=== PATIENT | female | born 1985 | race Caucasian/White ===

== ENCOUNTER 2017-01-04 12:26 | Emergency (ER) | payer BC, OTHER ==
[2017-01-04 12:42] VITALS: BP 137/81; PULSE 86; RESP 16; TEMP 98
[2017-01-04] MEDS ORDERED: DIPH,PERTUS(ACELL)TETVAC-LF 0.5 ML VIAL IM ONE (12:44)
--- NOTE | 2017-01-04 12:51 | ED ---
Animal Bite HPI - General Chief Complaint: Animal Bite Stated Complaint: dog bite, [facility] Time Seen by Provider: 01/04/17 12:36 Source: patient, RN notes reviewed Mode of arrival: ambulatory Limitations: no limitations - History of Present Illness Initial Comments: 31-year-old female presents to the emergency Department chief complaint of dog bite. Patient stated she was at work in a document from that her in the leg. Patient states she lifted out of 10 and these vaccinations. Patient states she does not wish steps and tenderness. Patient states just feels sore and painful. Patient denies any gross bleeding from the area. Patient denies any fever chills any redness surrounding the area. Patient denies any other injuries from the incident.Patient denies any recent fever, chills, shortness of breath, chest pain, back pain, abdominal pain, nausea vomiting, numbness or tingling, dysuria or hematuria, constipation or diarrhea, headaches or visual changes, or any other current symptoms. - Related Data Home Medications Medication Instructions Recorded Confirmed Cholecalciferol [Vitamin D3] 2,000 unit PO DAILY 10/12/14 01/04/17 Cetirizine HCl [Zyrtec] 10 mg PO DAILY 01/04/17 01/04/17 Levothyroxine Sodium [Synthroid] 112 mcg PO DAILY 01/04/17 01/04/17 Liothyronine Sodium [Cytomel] 10 mcg PO BID 01/04/17 01/04/17 Spironolactone 100 mg PO HS 01/04/17 01/04/17 Allergies Allergy/AdvReac Type Severity Reaction Status Date / Time No Known Allergies Allergy Verified 01/04/17 12:47 Review of Systems ROS Statement: Those systems with pertinent positive or pertinent negative responses have been documented in the HPI. ROS Other: All systems not noted in ROS Statement are negative. Past Medical History Past Medical History: Cancer, Thyroid Disorder Additional Past Medical History / Comment(s): THYROID CANCER History of Any Multi-Drug Resistant Organisms: None Reported Past Surgical History: Section Additional Past Surgical History / Comment(s): THROIDECTOMY 2010. CYST REMOVED FROM BRAIN. INUTERINE TREATMENT WHEN WITH TWINS (DONE IN [place]). C- SECTION X 3. Past Anesthesia/Blood Transfusion Reactions: No Reported Reaction Past Psychological History: No Psychological Hx Reported Smoking Status: Never smoker Past Alcohol Use History: Rare Past Drug Use History: None Reported General Exam Limitations: no limitations General appearance: alert, in no apparent distress Neck exam: Present: normal inspection. Absent: tenderness, meningismus, lymphadenopathy Respiratory exam: Present: normal lung sounds bilaterally. Absent: respiratory distress, wheezes, rales, rhonchi, stridor Cardiovascular Exam: Present: regular rate, normal rhythm, normal heart sounds. Absent: systolic murmur, diastolic murmur, rubs, gallop, clicks Extremities exam: Present: full ROM, normal capillary refill. Absent: normal inspection (Patient has a small abrasion to the right upper thigh), tenderness, pedal edema, joint swelling, calf tenderness Back exam: Present: normal inspection Neurological exam: Present: alert, oriented X3, CN II-XII intact Course Vital Signs 01/04/17 12:37 Temperature 98 F Pulse Rate 86 Respiratory 16 Rate Blood Pressure 137/81 O2 Sat by Pulse 100 Oximetry Medical Decision Making - Medical Decision Making 31-year-old female presents for diabetic. Centimeters abrasion to the right upper thigh. X-rays reviewed that showed no acute processes. Her tetanus was updated. 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 Patient stated that she understood that was a patient Augmentin. Discussed comparison follow-up. Patient states she understood all questions have been answered. She will be discharged. - Radiology Data Radiology results: report reviewed, image reviewed Disposition Clinical Impression: Dog bite of right thigh Disposition: HOME SELF-CARE Condition: Stable Instructions: Animal Bite (ED) Additional Instructions: Please use medication as discussed. Please follow up with family doctor if symptoms have not improved over the next two days. Please return to the emergency room if your symptoms increase or worsen or for any other concerns. Referrals: Adeola Muniz MD [Primary Care Provider] - 1-2 days Time of Disposition: 13:17
--- NOTE | 2017-01-04 13:02 | XR ---
EXAMINATION TYPE: XR femur RT DATE OF EXAM: 01/04/2017 12:56 PM CLINICAL HISTORY: pain TECHNIQUE: Two views of the right femur are obtained. COMPARISON: None. FINDINGS: There is no acute fracture or dislocation seen of the femur. The hip and knee joints appear within normal limits. The overlying soft tissue appears unremarkable. IMPRESSION: There is no acute fracture or dislocation seen of the femur. ICD 10 NO FRACTURE, INITIAL EVALUATION
[2017-01-04] MEDS ORDERED: AMOXIC-POT CLAV 875MG STARTER 2 EACH TABLET PO STA (13:17)
== END 2017-01-04 13:39 | disposition home or self-care (01) ==
LOC: EC 12:26
DX: S71.151A Open bite, right thigh, initial encounter (principal); E07.9 Disorder of thyroid, unspecified; W54.0XXA Bitten by dog, initial encounter; Y99.0 Civilian activity done for income or pay; Z23 Encounter for immunization; Z79.899 Other long term (current) drug therapy; Z85.850 Personal history of malignant neoplasm of thyroid
CPT/HCPCS: 90471; 90715; 99283

== ENCOUNTER 2017-11-30 11:13 | Emergency (ER) | payer OTHER ==
[2017-11-30] MEDS ORDERED: ACETAMINOPHEN TAB 500 MG TAB PO STA (12:06)
--- NOTE | 2017-11-30 12:08 | ED ---
URI HPI - General Chief Complaint: Upper Respiratory Infection Stated Complaint: cough Time Seen by Provider: 11/30/17 11:36 Source: patient Mode of arrival: ambulatory Limitations: no limitations - History of Present Illness Initial Comments: This is a 32-year-old female who presents emergency department for 1 week's worth of cough, congestion, and earache. The patient is also been complaining of fevers and chills at home. She states that the symptoms been going on for a week and have gradually been improving however she's had persistent symptoms or she decided come emergency department. She denies any chest pain or shortness of breath. No abdominal pain. No nausea, vomiting, or diarrhea. No dysuria or hematuria. No other acute complaints. - Related Data Home Medications Medication Instructions Recorded Confirmed Levothyroxine Sodium [Synthroid] 112 mcg PO DAILY 01/04/17 11/30/17 Liothyronine Sodium [Cytomel] 10 mcg PO BID 01/04/17 11/30/17 Spironolactone 100 mg PO HS 01/04/17 11/30/17 Etonogestrel/Ethinyl Estradiol 1 ring VG Q28D 11/30/17 11/30/17 [Nuvaring Vaginal Ring] Previous Rx's Medication Instructions Recorded Amoxicillin/Potassium Clav 1 tab PO Q12HR #14 tab 11/30/17 [Augmentin 875-125 Tablet] Allergies Allergy/AdvReac Type Severity Reaction Status Date / Time No Known Allergies Allergy Verified 11/30/17 11:32 Review of Systems ROS Statement: Those systems with pertinent positive or pertinent negative responses have been documented in the HPI. ROS Other: All systems not noted in ROS Statement are negative. Past Medical History Past Medical History: Cancer, Thyroid Disorder Additional Past Medical History / Comment(s): THYROID CANCER History of Any Multi-Drug Resistant Organisms: None Reported Past Surgical History: Section, Hysterectomy Additional Past Surgical History / Comment(s): THROIDECTOMY 2010. CYST REMOVED FROM BRAIN. INUTERINE TREATMENT WHEN WITH TWINS (DONE IN [place]). C- SECTION X 3. Past Anesthesia/Blood Transfusion Reactions: No Reported Reaction Past Psychological History: No Psychological Hx Reported Smoking Status: Never smoker Past Alcohol Use History: Rare Past Drug Use History: None Reported General Exam - General Exam Comments Initial Comments: Constitutional: Awake alert Appears comfortable Head: Normocephalic atraumatic Eyes: no conjunctival injection No scleral icterus EOMI ENT oropharynx is mildly erythematous without exudate, TMs clear bilaterally, mild rhinorrhea Neck: No JVD Supple, no lymphadenopathy Heart: Regular rate rhythm normal S1-S2 no murmurs Lungs: Clear to auscultation bilaterally No wheezing No rales Abdomen: Soft nondistended nontender Extremities: Non edematous DP pulses intact Radial pulses intact Neuro: A&Ox3 No focal neurologic deficits Psych: Appropriate mood and affect Limitations: no limitations Course Vital Signs 11/30/17 11/30/17 11/30/17 11:29 12:42 13:40 Temperature 100.3 F H 98.0 F Pulse Rate 110 H 95 Respiratory 20 16 20 Rate Blood Pressure 122/77 140/80 O2 Sat by Pulse 97 98 Oximetry Medical Decision Making - Medical Decision Making Is a 32-year-old female presents emergency room for cough and congestion and fever. The patient was febrile on arrival however did not have any evidence for pneumonia. Influenza was negative. Patient due to her symptoms being for the last week will be started on Augmentin for probable sinusitis. Told to follow-up with her primary doctor. Can return emergency Department if she has worsening or changing symptoms or questions were answered. - Lab Data Lab Results 11/30/17 Range/Units 12:13 Influenza Type A RNA Not Detected (Not Detectd) Influenza Type B (PCR) Not Detected (Not Detectd) Disposition Clinical Impression: URI (upper respiratory infection) Disposition: HOME SELF-CARE Condition: Stable Instructions: Upper Respiratory Infection (ED) Prescriptions: Amoxicillin/Potassium Clav [Augmentin 875-125 Tablet] 1 tab PO Q12HR #14 tab Referrals: Adeola Muniz MD [Primary Care Provider] - 1-2 days
--- NOTE | 2017-11-30 12:52 | XR ---
EXAMINATION TYPE: XR chest 2V DATE OF EXAM: 11/30/2017 COMPARISON: 03/28/2010 HISTORY: Cough TECHNIQUE: Frontal and lateral views of the chest are obtained. FINDINGS: Heart and mediastinum are normal. Lungs are clear. Diaphragm is normal. Bony thorax appear s normal. IMPRESSION: Normal chest. No change.
[2017-11-30 13:41] VITALS: BP 140/80; PULSE 95; RESP 20; TEMP 98
== END 2017-11-30 13:40 | disposition home or self-care (01) ==
LOC: EC 11:13
DX: J06.9 Acute upper respiratory infection, unspecified (principal); E07.9 Disorder of thyroid, unspecified; Z85.850 Personal history of malignant neoplasm of thyroid; Z79.899 Other long term (current) drug therapy; Z79.3 Long term (current) use of hormonal contraceptives
CPT/HCPCS: 71020; 87502; 99283

== ENCOUNTER 2024-10-08 16:43 | Emergency (ER) | payer SELFPAY ==
--- NOTE | 2024-10-08 17:21 | ED ---
Abdominal Pain HPI - General Chief Complaint: Abdominal Pain Stated Complaint: Abd/Back Pain Time Seen by Provider: 10/08/24 17:00 Source: patient, RN notes reviewed Mode of arrival: ambulatory Limitations: no limitations - History of Present Illness Initial Comments: This is a 39-year-old female who presents to the emergency department for abdominal pain. Patient states that she started to develop pain in the right lower quadrant/right pelvic region starting around 9 AM. Pain has since persisted and started to wrap around into her back. Reports associated nausea and vomiting. She has a history of PCOS and endometriosis. She had a partial hysterectomy but still has her ovaries. States that she has a history of large ovarian cysts and is concerned that she could have another one. MD Complaint: abdominal pain - Related Data Home Medications Medication Instructions Recorded Confirmed Levothyroxine Sodium [Synthroid] 112 mcg PO DAILY 01/04/17 11/30/17 Liothyronine Sodium [Cytomel] 10 mcg PO BID 01/04/17 11/30/17 Spironolactone 100 mg PO HS 01/04/17 11/30/17 Etonogestrel/Ethinyl Estradiol 1 ring VG Q28D 11/30/17 11/30/17 [Nuvaring Vaginal Ring] Previous Rx's Medication Instructions Recorded Amoxicillin/Potassium Clav 1 tab PO Q12HR #14 tab 11/30/17 [Augmentin 875-125 Tablet] Ketorolac [Toradol] 10 mg PO Q6HR PRN #15 tab 10/08/24 Ondansetron Odt [Zofran Odt] 4 mg PO Q8HR PRN #20 tab 10/08/24 Allergies Allergy/AdvReac Type Severity Reaction Status Date / Time No Known Allergies Allergy Verified 10/08/24 16:53 Review of Systems ROS Statement: Those systems with pertinent positive or pertinent negative responses have been documented in the HPI. ROS Other: All systems not noted in ROS Statement are negative. Past Medical History Past Medical History: Cancer, Thyroid Disorder Additional Past Medical History / Comment(s): THYROID CANCER History of Any Multi-Drug Resistant Organisms: None Reported Past Surgical History: Section, Hysterectomy Additional Past Surgical History / Comment(s): THROIDECTOMY 2010. CYST REMOVED FROM BRAIN. INUTERINE TREATMENT WHEN WITH TWINS (DONE IN [place]). C- SECTION X 3. Past Anesthesia/Blood Transfusion Reactions: No Reported Reaction Past Psychological History: No Psychological Hx Reported Past Alcohol Use History: Rare Past Drug Use History: None Reported General Exam Limitations: no limitations General appearance: alert, in distress Head exam: Present: atraumatic, normocephalic, normal inspection Respiratory exam: Present: normal lung sounds bilaterally. Absent: respiratory distress, wheezes, rales, rhonchi, stridor Cardiovascular Exam: Present: regular rate, normal rhythm, normal heart sounds. Absent: systolic murmur, diastolic murmur, rubs, gallop, clicks GI/Abdominal exam: Present: soft, tenderness (RLQ), normal bowel sounds. Abs ent: distended Expanded GI/Abdominal exam: Absent: psoas sign, obturator sign, heel tap sign, Tate's sign, tenderness at [place]Bur[place]'s Point Neurological exam: Present: alert, oriented X3, CN II-XII intact Psychiatric exam: Present: normal affect, normal mood Skin exam: Present: warm, dry, intact, normal color. Absent: rash Course Vital Signs 10/08/24 10/08/24 10/08/24 16:50 19:01 20:52 Temperature 98.1 F 97.8 F 98.1 F Pulse Rate 97 85 80 Respiratory 18 16 18 Rate Blood Pressure 116/86 104/66 103/70 O2 Sat by Pulse 100 98 94 L Oximetry Medical Decision Making - Medical Decision Making This is a 39 year old female who presents to the emergency department for abdomi nal pain. Was pt. sent in by a medical professional or institution? @ -No Did you speak to anyone other than the patient for history? @ -No Did you review nursing and triage notes? @ -Yes, and I agree, it is accurate with regards to the patient's symptoms. Were old charts reviewed? @ -No Differential Diagnosis? @ -Differential Abdominal Pain Women: Appendicitis, Cholecystitis, diverticulosis, ischemic bowel, pancreatitis, hepatitis, UTI, gastroenteritis, AAA, incarcerated hernia, bowel obstruction, constipation, inflammatory bowel, hepatitis, peptic ulcer disease, splenic infarction, perforated viscus, vulvitis, ovarian torsion, PID, kidney stone, placenta abruption, this is not meant to be an all-inclusive list EKG interpreted by me (3pts min.)? @ -Not obtained X-rays interpreted by me (1pt min.)? @ -Not obtained CT interpreted by me (1pt min.)? @ -CT scan of the abdomen and pelvis obtained. My interpretation identifies no evidence of bowel wall thickening or free air. U/S interpreted by me (1pt. min.)? @ -Transvaginal ultrasound obtained. My interpretation identifies a right- sided ovarian cyst. What testing was considered but not performed? (CT, X-rays, U/S, labs)? Why? @ -None What meds were considered but not given? Why? @ -None Did you discuss the management of the patient with other professionals? @ -Yes, Dr. Aldrich, UPHOLSTERY DEPARTMENT SUPERVISOR, who advised that this is not considered a torsion at this point since there is still blood flow and we can start with analgesics. Did you reconcile home meds? @ -No Was smoking cessation discussed for >3mins.? @ -No Was critical care preformed (if so, how long)? @ -No Were there social determinants of health that impacted care today? How? (Homelessness, low income, unemployed, alcoholism, drug addiction, transportation, low edu. Level, literacy, decrease access to med. care, senior care, rehab)? @ -No Was there de-escalation of care discussed even if they declined? (Discuss DNR or withdrawal of care, Hospice)? @ -No What co-morbidities impacted this encounter? (DM, HTN, Smoking, COPD, CAD, Cancer, CVA, Hep., AIDS, mental health diagnosis, sleep apnea, morbid obesity)? @ -Endometriosis Was patient admitted / discharged? @ -Discharged. When the patient presented to the emergency department she was first seen and evaluated in the waiting room. Transvaginal ultrasound was obtained demonstrating a complex right adnexal lesion possibly representing an ovary with 2 cysts. However, the overall size fixation is at increased risk for torsion. There is also diminished arterial flow to the ovary. Given these findings and patient's level distress, case was discussed with on-call UPHOLSTERY DEPARTMENT SUPERVISOR, Dr. Aldrich. She advised that this is not considered a torsion at this point and we can try treating the patient with analgesics to begin with. Lab work obtained demonstrating leukocytosis. Lactic acid negative. Given the leukocytosis, CT scan of the abdomen and pelvis was obtained as well to evaluate for any other pathologies. CT demonstrated her ovaries being situated next to each other as well as an abnormal soft tissue mass in the abdominal wall surgical bed concerning for endometriosis with abdominal wall implant. Her appendix was not definitively visualized. Findings reviewed with the patient. While she does have leukocytosis, she has no fevers, rebound tenderness, or tenderness over McBurney's point specifically. Given that symptoms are well- controlled, she was able to be discharged home. However, we did discuss very strict return parameters. Appendicitis cannot definitively be ruled out and worsening pain necessitates the need for her to return. She is also at increased risk for torsion, which is another indication to return with increasing pain. Patient expresses understanding. Toradol and Zofran prescribed for further symptomatic management. Advised follow-up with UPHOLSTERY DEPARTMENT SUPERVISOR as well. Patient discharged home in stable condition. Case discussed with ED attending Dr. Sun. Return precautions reviewed in depth, the patient is instructed to return to the emergency department with any new, worsening, or concerning symptoms. Patient verbalized understanding. Undiagnosed new problem with uncertain prognosis? @ -None Drug Therapy requiring intensive monitoring for toxicity (Heparin, Nitro, Insulin, Cardizem)? @ -None Were any procedures done? @ -None Diagnosis/symptom? @ -Right ovarian cyst, endometriosis of anterior abdominal wall Acute, or Chronic, or Acute on Chronic? @ -Acute Uncomplicated (without systemic symptoms) or Complicated (systemic symptoms)? @ -Uncomplicated Side effects of treatment? @ -None Exacerbation, Progression, or Severe Exacerbation] @ -Not applicable Poses a threat to life or bodily function? @ -This will depend on how she progresses - Lab Data Result diagrams: 10/08/24 18:41 10/08/24 18:41 Lab Results 10/08/24 10/08/24 10/08/24 Range/Units 18:41 18:41 18:41 WBC 17.4 H (3.8-10.6) k/uL RBC 4.84 (3.80-5.40) m/uL Hgb 14.5 (11.4-16.0) gm/dL Hct 43.5 (34.0-46.0) % MCV 89.8 (80.0-100.0) fL MCH 30.0 (25.0-35.0) pg MCHC 33.5 (31.0-37.0) g/dL RDW 12.5 (11.5-15.5) % Plt Count 367 (150-450) k/uL MPV 7.4 Neutrophils % 90 % Lymphocytes % 6 % Monocytes % 3 % Eosinophils % 1 % Basophils % 0 % Neutrophils # 15.7 H (1.3-7.7) k/uL Lymphocytes # 1.1 (1.0-4.8) k/uL Monocytes # 0.4 (0-1.0) k/uL Eosinophils # 0.1 (0-0.7) k/uL Basophils # 0.1 (0-0.2) k/uL Sodium 135 L (137-145) mmol/L Potassium 4.0 (3.5-5.1) mmol/L Chloride 105 (98-107) mmol/L Carbon Dioxide 23 (22-30) mmol/L Anion Gap 7 mmol/L BUN 10 (7-17) mg/dL Creatinine 0.67 (0.52-1.04) mg/dL Est GFR (CKD-EPI)AfAm >90 (>60 ml/min/1.73 sqM) Est GFR (CKD-EPI)NonAf >90 (>60 ml/min/1.73 sqM) Glucose 128 H (74-99) mg/dL Plasma Lactic Acid [place] 1.2 (0.7-2.0) mmol/L Calcium 9.4 (8.4-10.2) mg/dL Total Bilirubin 0.5 (0.2-1.3) mg/dL AST 26 (14-36) U/L ALT 30 (4-34) U/L Alkaline Phosphatase 82 (38-126) U/L Total Protein 7.6 (6.3-8.2) g/dL Albumin 4.4 (3.5-5.0) g/dL Amylase 50 (30-110) U/L Lipase 59 (23-300) U/L Urine Color Urine Appearance (Clear) Urine pH (5.0-8.0) Ur Specific [place] (1.001-1.035) Urine Protein (Negative) Urine Glucose (UA) (Negative) Urine Ketones (Negative) Urine Blood (Negative) Urine Nitrite (Negative) Urine Bilirubin (Negative) Urine Urobilinogen (<2.0) mg/dL Ur Leukocyte Esterase (Negative) 10/08/24 Range/Units 20:28 WBC (3.8-10.6) k/uL RBC (3.80-5.40) m/uL Hgb (11.4-16.0) gm/dL Hct (34.0-46.0) % MCV (80.0-100.0) fL MCH (25.0-35.0) pg MCHC (31.0-37.0) g/dL RDW (11.5-15.5) % Plt Count (150-450) k/uL MPV Neutrophils % % Lymphocytes % % Monocytes % % Eosinophils % % Basophils % % Neutrophils # (1.3-7.7) k/uL Lymphocytes # (1.0-4.8) k/uL Monocytes # (0-1.0) k/uL Eosinophils # (0-0.7) k/uL Basophils # (0-0.2) k/uL Sodium (137-145) mmol/L Potassium (3.5-5.1) mmol/L Chloride (98-107) mmol/L Carbon Dioxide (22-30) mmol/L Anion Gap mmol/L BUN (7-17) mg/dL Creatinine (0.52-1.04) mg/dL Est GFR (CKD-EPI)AfAm (>60 ml/min/1.73 sqM) Est GFR (CKD-EPI)NonAf (>60 ml/min/1.73 sqM) Glucose (74-99) mg/dL Plasma Lactic Acid [place] (0.7-2.0) mmol/L Calcium (8.4-10.2) mg/dL Total Bilirubin (0.2-1.3) mg/dL AST (14-36) U/L ALT (4-34) U/L Alkaline Phosphatase (38-126) U/L Total Protein (6.3-8.2) g/dL Albumin (3.5-5.0) g/dL Amylase (30-110) U/L Lipase (23-300) U/L Urine Color Colorless Urine Appearance Clear (Clear) Urine pH 6.5 (5.0-8.0) Ur Specific [place] 1.022 (1.001-1.035) Urine Protein Negative (Negative) Urine Glucose (UA) Negative (Negative) Urine Ketones 1+ H (Negative) Urine Blood Negative (Negative) Urine Nitrite Negative (Negative) Urine Bilirubin Negative (Negative) Urine Urobilinogen <2.0 (<2.0) mg/dL Ur Leukocyte Esterase Negative (Negative) - Radiology Data Radiology results: report reviewed, image reviewed Disposition Clinical Impression: Right ovarian cyst, Endometriosis of anterior abdominal wall Disposition: HOME SELF-CARE Instructions (If sedation given, give patient instructions): Endometriosis (ED), Ovarian Cyst (ED) Additional Instructions: Return to the emergency department with any new, worsening, or concerning symptoms. Take the Toradol with Tylenol as needed for pain relief. If you choose to take the Toradol, do not take any other anti-inflammatories such as ibuprofen, take one or the other. Take the Zofran up to every 8 hours as needed for nausea and vomiting. Follow-up with UPHOLSTERY DEPARTMENT SUPERVISOR, this can be a local provider or you can see [facility] again. Follow up with your primary care provider in 1-2 days. Prescriptions: Ketorolac [Toradol] 10 mg PO Q6HR PRN #15 tab PRN Reason: Pain Ondansetron Odt [Zofran Odt] 4 mg PO Q8HR PRN #20 tab PRN Reason: Nausea And Vomiting Is patient prescribed a controlled substance at d/c from ED?: No Referrals: Sree Cordova DO [Primary Care Provider] - 1-2 days Leesa Aldrich DO [Doctor of Osteopathic Medicine] - 1-2 days Time of Disposition: 21:10
--- NOTE | 2024-10-08 18:07 | US ---
EXAMINATION TYPE: US transvaginal DATE OF EXAM: 10/08/2024 COMPARISON: 06/04/2016 CLINICAL INDICATION: Female, 39 years old with history of Right sided pelvic pain; right pelvic pain, vomiting. partial hysterectomy 2017. 3 c-sections. tubal ligation TECHNIQUE: Transvaginal (TV). Transvaginal grayscale sonographic images of the pelvis were acquired. Doppler imaging: Color Doppler Images were obtained. Spectral doppler images were obtained. FINDINGS: Date of LMP: unknown EXAM MEASUREMENTS: Uterus: Surgically absent Endometrial Stripe: Surgically absent Right Ovary: 5.6 x 3.3 x 3.7 cm Left Ovary: unable to visualize due to bowel gas. 1. Uterus: Surgically absent 2. Endometrium: Surgically absent 3. Right Ovary: complex cystic lesion = 3.3 x 2.7 x 3.1cm. small cystic lesion = 1.8cm 4. Left Ovary: Obscured by overlying bowel gas Spectral, color and waveform doppler imaging shows LITTLE arterial and venous flow within the right ovary 5. Bilateral Adnexa: free fluid right adnexa IMPRESSION: 1. Complex right adnexal lesion possibly representing an ovary with 2 cysts.. Overall size fixation risk for torsion. Predicted note that there was venous and arterial flow however the arterial flow is diminished. 2. Small amount of free fluid pelvis which could be physiologic. 3. Unable to visualize left ovary due to bowel gas. [facility], , 10/08/2024 6:05 PM
[2024-10-08 18:50] LABS: Basophils # (A) 0.1 k/uL (0-0.2); Basophils % (A) 0 %; Eosinophils # (A) 0.1 k/uL (0-0.7); Eosinophils % (A) 1 %; HCT 43.5 % (34.0-46.0); HGB 14.5 gm/dL (11.4-16.0); Lymphocytes # (A) 1.1 k/uL (1.0-4.8); Lymphocytes % (A) 6 %; MCHC 33.5 g/dL (31.0-37.0); MCV 89.8 fL (80.0-100.0); Mean Platelet Volume 7.4; Monocytes # (A) 0.4 k/uL (0-1.0); Monocytes % (A) 3 %; Neutrophils # (A) 15.7 k/uL (1.3-7.7); Neutrophils % (A) 90 %; Platelet Count 367 k/uL (150-450); RBC 4.84 m/uL (3.80-5.40); RDW 12.5 % (11.5-15.5); WBC 17.4 k/uL (3.8-10.6)
[2024-10-08] MEDS: SODIUM CHLORIDE 0.9% 1,000 ML IV STA (18:58)
[2024-10-08 19:02] LABS: ALT 30 U/L (4-34); AST 26 U/L (14-36); African American GFR (CKD) >90 (>60 ml/min/1.73 sqM); Albumin 4.4 g/dL (3.5-5.0); Alkaline Phosphatase 82 U/L (38-126); Amylase 50 U/L (30-110); Anion Gap 7 mmol/L; Blood Urea Nitrogen 10 mg/dL (7-17); Calcium 9.4 mg/dL (8.4-10.2); Carbon Dioxide 23 mmol/L (22-30); Chloride 105 mmol/L (98-107); Glucose 128 mg/dL (74-99); Lipase 59 U/L (23-300); Non-African American GFR(CKD) >90 (>60 ml/min/1.73 sqM); Sodium 135 mmol/L (137-145); Total Bilirubin 0.5 mg/dL (0.2-1.3); Total Protein 7.6 g/dL (6.3-8.2)
--- NOTE | 2024-10-08 19:57 | CT ---
EXAMINATION TYPE: CT abdomen pelvis w con DATE OF EXAM: 10/08/2024 7:27 PM COMPARISON: None. CLINICAL INDICATION: Female, 39 years old with history of RLQ pain; TECHNIQUE: Axial CT abdomen pelvis w con;Sagittal and coronal reformats were created on a separate w orkstation. Contrast used:100 ml mL of Isovue 300 with IV Contrast, (none if empty) Oral contrast used: without Oral Contrast (none if empty) CT DLP: 863.7 mGycm, Automated exposure control for dose reduction was used. FINDINGS: LOWER CHEST: Unremarkable ABDOMEN LIVER: Unremarkable GALLBLADDER AND BILE DUCTS: Unremarkable. PANCREAS: Unremarkable. SPLEEN: Unremarkable. ADRENAL GLANDS: Unremarkable. KIDNEYS AND URETERS: No evidence of hydronephrosis or renal calculus. The ureters are unremarkable. PELVIS BLADDER: No evidence for wall thickening or mass given limitations of exam. REPRODUCTIVE: The ovaries are situated next to each other with cysts on what is thought to be the rig ht more anterior ovary and dominant follicle on the more posterior one measuring 19 mm. The uterus is surgically absent. ABDOMEN & PELVIS STOMACH AND BOWEL: No evidence of bowel obstruction. PERITONEUM/RETROPERITONEUM: No evidence of pneumoperitoneum. Trace free fluid VASCULATURE: No evidence of aortic aneurysm. MUSCULOSKELETAL: No acute osseous abnormalities LYMPH NODES: No gross evidence for lymphadenopathy. SOFT TISSUE/ABDOMINAL WALL: Hyperintense focus within the intra-abdominal wall on surgical bed measur ing 27 x 12 x 16 mm. IMPRESSION: 1. Surgically absent uterus with the ovaries adjacent to each other near midline in the anterior pel vis as well as the abnormal soft tissue mass in the abdominal wall surgical bed, findings concerning for endometriosis with abdominal wall implant. Correlate clinically for cyclic pain. 2. The appendix is not definitively visualized. 3. No obstructive uropathy or renal calculus. [facility], , 10/08/2024 7:54 PM
[2024-10-08] MEDS: MORPHINE SULFATE 4 MG/ML SYRINGE IVP STA (20:23)
[2024-10-08] MEDS: KETOROLAC 15 MG/ML 1 ML VIAL IVP STA (20:24)
[2024-10-08] MEDS: ONDANSETRON 4 MG/2 ML VIAL IVP STA (20:24)
[2024-10-08 20:54] VITALS: BP 103/70; PULSE 80; RESP 18; TEMP 98.1
[2024-10-08 21:04] LABS: Appearance,Urine Clear (Clear); Bilirubin,Urine Negative (Negative); Blood,Urine Negative (Negative); Color,Urine Colorless; Glucose,Urine (UA) Negative (Negative); Ketones,Urine 1+ (Negative); Leukocyte Esterase,Urine Negative (Negative); Nitrite,Urine Negative (Negative); PH, Urine 6.5 (5.0-8.0); Protein,Urine Negative (Negative); Specific Gravity,Urine 1.022 (1.001-1.035); Urobilinogen,Urine <2.0 mg/dL (<2.0)
[2024-10-08] MEDS: ACET/COD 300 MG/30 MG STARTER PACK 6 TAB BTL PO STA (21:19)
[2024-10-08] MEDS: ONDANSETRON 4 MG ODT STARTER PACK 2 TAB BTL PO STA (21:20)
[2024-10-08] MEDS: IBUPROFEN 600 MG STARTER PACK 4 TAB BTL PO STA (21:20)
== END 2024-10-08 21:27 | disposition home or self-care (01) ==
LOC: EC 16:43
DX: N80.C19 Endometriosis of the anterior abdominal wall, unspecified depth (principal); N83.201 Unspecified ovarian cyst, right side
CPT/HCPCS: 36415; 80053; 82150; 83605; 83690; 85025; 81003; 93976; 76830; 74177; 99284; 96374; 96375; 96361; J2270; J2405; J1885; S0119; Q9967

== ENCOUNTER → 2024-11-23 | Outpatient (CLI) | payer BC ==
--- NOTE | 2024-11-23 09:46 | US ---
EXAMINATION TYPE: US pelvis complete transvag DATE OF EXAM: 11/23/2024 COMPARISON: CT & US CLINICAL INDICATION: Female, 39 years old with history of N83.201 UNSPECIFIED OVARIAN CYST, RIGHT ANGELIQUE E; F/U Ovarian Cyst TECHNIQUE: Transvaginal (TV) and Transabdominal (TA) . Transabdominal grayscale sonographic images of the pelvis were acquired. Transvaginal sonographic im ages were medically necessary to better assess the following anatomy: TV Ordered per physician Doppler imaging: Not performed. FINDINGS: Date of LMP: Uterus removed EXAM MEASUREMENTS: Right Ovary: 4.6 x 3.7 x 2.9 cm Left Ovary: 2.7 x 1.6 x 1.5 cm 1. Uterus: Surgically absent 2. Endometrium: Surgically absent 3. Right Ovary: Complex cystic lesion with debris= 2.5 x 2.6 x 2.9 cm 4. Left Ovary: wnl 5. Bilateral Adnexa: wnl 6. Posterior cul-de-sac: Small amount of free fluid Uterus and endometrium are surgically absent. Vaginal cuff appears unremarkable. Left ovary is within normal limits. Complex right ovarian cystic lesion with new layering debris measuring to 2.9 cm. Pre viously measured up to 3 cm. No internal color flow. Small amount of simple free fluid within the pos terior cul-de-sac. IMPRESSION: 1. Marginal decrease in size of right ovarian complex cystic lesion with new layering debris. May re present an endometrioma versus other etiologies. Consider further evaluation with MRI pelvis versus c ontinued ultrasound follow-up. 2. Postsurgical changes from hysterectomy. [facility], , 11/23/2024 9:44 AM
== END | disposition home or self-care (01) ==
LOC: RADUSWWP 08:48
PROVIDERS: ATTEND Obstetrics & Gynecology
DX: N83.291 Other ovarian cyst, right side (principal); Z90.710 Acquired absence of both cervix and uterus
CPT/HCPCS: 76830; 76856